=== PATIENT | female | born 2005 | race Hispanic/Latino ===

== ENCOUNTER 2024-07-03 21:18 | Emergency (ER) | payer OTHER ==
[~2024-07-03] VITALS: Ht 162.6 cm; Wt 105.2 kg
[2024-07-03 21:35] VITALS: PULSE 100; RESP 18; TEMP 98.5
[2024-07-03] MEDS: TRAMADOL HCL 50 MG TAB PO ONE (22:43)
[2024-07-03] MEDS ORDERED: CYCLOBENZAPRINE5 MG PO (23:52)
[2024-07-04] MEDS ORDERED: IBUPROFEN600 MG PO (00:21)
[2024-07-04 00:30] VITALS: BP 134/72; PULSE 96; RESP 18; TEMP 98.6; O2SAT 98
== END 2024-07-04 00:30 | disposition home or self-care (01) ==
LOC: FSED 21:26
DX: M54.6 Pain in thoracic spine (principal); S20.212A Contusion of left front wall of thorax, initial encounter; W50.0XXA Accidental hit or strike by another person, initial encounter; Y92.89 Other specified places as the place of occurrence of the external cause; F17.210 Nicotine dependence, cigarettes, uncomplicated
CPT/HCPCS: 71101; 81003; 81025; 99283

== ENCOUNTER 2024-09-18 16:14 | Emergency (ER) | payer OTHER ==
[~2024-09-18] VITALS: Ht 162.6 cm; Wt 109.3 kg
[~2024-09-18 16:14] MED LIST: CYCLOBENZAPRINE5 MG PO; IBUPROFEN600 MG PO
[2024-09-18 16:25] VITALS: PULSE 88; RESP 18; TEMP 97.8; O2SAT 96
[2024-09-18] MEDS: ASPIRIN 325 MG TAB PO ONE (16:43)
[2024-09-18 17:30] VITALS: BP 126/59; PULSE 85; RESP 18
== END 2024-09-18 17:32 | disposition home or self-care (01) ==
LOC: FSED 16:19
DX: R00.2 Palpitations (principal); R07.89 Other chest pain
CPT/HCPCS: 71046; 80053; 81003; 81025; 84484; 85025; 85379; 93005; 99283